=== PATIENT | female | born 1990 | race Caucasian/White ===

== ENCOUNTER → 2017-02-17 | Outpatient (CLI) | payer MEDICAID ==
[~2017-02-17] MED LIST: AMOXICOT500 M1 PO; NITROFURANTOIN100 M4 PO; PRENATAL PLUS1 TA1 PO; TYLENOL ES500 M1 PO
== END ==
LOC: LAB 16:09
DX: Z36 Encounter for antenatal screening of mother (principal)

== ENCOUNTER 2017-03-07 05:06 | Inpatient (IN) | payer MEDICAID ==
[~2017-03-07] VITALS: Ht 160 cm; Wt 88.0 kg
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
--- OUTSIDE RECORDS SUMMARY | 2017-03-07 05:13 | External Medical Summary Rpt ---
Demographics Preferred Language Occitan Marital Status Unknown Pentecostalism Affiliation Unknown Race Unknown Ethnic Group Unknown Author Author MADISYN Address Unknown Phone Immunization Unable to retrieve immunization data due to connection failure with Immunization Registry. Please try again later.
--- OUTSIDE RECORDS SUMMARY | 2017-03-07 05:13 | External Medical Summary Rpt ---
Demographics Preferred Language Khmer Marital Status Unknown Faith Affiliation Unknown Race Unknown Ethnic Group Unknown Author Author MADISYN Address Unknown Phone Immunization Unable to retrieve immunization data due to connection failure with Immunization Registry. Please try again later.
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
--- OUTSIDE RECORDS SUMMARY | 2017-03-07 05:14 | External Medical Summary Rpt ---
Author Author [facility] Taylor, [employer] Organization [employer] Address Unknown Phone Unavailable Results Urinalysis dipstick W Reflex Microscopic panel in Urine Observa Value Referen Units Interpr Notes Date tion ce etation Range Collected by nurse? Y Hold specimen in OE? N Appeara CLEAR CLEAR No No No Mar 02 nce of informa informa informa 2017 Urine tion in tion in tion in 12:30 source source source AM data data data Bacteri 1+ O No No No Mar 02 a informa informa informa 2016 [Presen tion in tion in tion in 12:30 ce] in source source source AM Urine data data data sedimen t by Light microsc opy Bilirub NEGATIV NEG No No No Mar 02 in E informa informa informa 2016 [Presen tion in tion in tion in 12:30 ce] in source source source AM Urine data data data by Test strip Erythro NEGATIV NEG No No No Mar 02 cytes E informa informa informa 2016 [Presen tion in tion in tion in 12:30 ce] in source source source AM Urine data data data Color YELLOW YELLOW No No No Mar 02 of informa informa informa 2017 Urine tion in tion in tion in 12:30 source source source AM data data data Glucose NEG No No No Mar 02 [Mass/vol informati informati informati 2017 ume] in on in on in on in 12:30 AM Urine by source source source Test data data data strip Ketones NEGATIV NEG mg/dL No No Mar 02 E informa informa 2016 [Presen tion in tion in 12:30 ce] in source source AM Urine data data by Automat ed test strip Mucus TRACE NEG No Abnorma No Mar 02 [Presen informa l informa 2017 ce] in tion in tion in 12:30 Urine source source AM sedimen data data t by Light microsc opy Mucus 1+ OCC No No No Mar 02 [Presen informa informa informa 2017 ce] in tion in tion in tion in 12:30 Urine source source source AM sedimen data data data t by Light microsc opy Nitrite NEGATIV NEG No No No Mar 02 E informa informa informa 2016 [Presen tion in tion in tion in 12:30 ce] in source source source AM Urine data data data by Test strip pH of 5.0 - 8.5 No Normal No Mar 02 Urine informati informati 2017 on in on in 12:30 AM source source data data Protein NEG mg/dL No No Mar 02 [Mass/vol informati informati 2017 ume] in on in on in 12:30 AM Urine by source source Automated data data test strip Specific 1.005 - No Normal No Mar 02 gravity 1.030 informati informati 2016 of Urine on in on in 12:30 AM source source data data Epithel OCC 0 - 5 #/hpf No No Mar 02 ial informa informa 2017 cells.s tion in tion in 12:30 quamous source source AM data data [Presen ce] in Urine sedimen t by Microsc opy high power field Urobili 1.0 NEG E.U./dL No No Mar 02 nogen informa informa 2016 [Presen tion in tion in 12:30 ce] in source source AM Urine data data by Test strip Leukocy [3 O wbc/hpf No No Mar 02 ericka wbc/hpf informa informa 2016 [#/volu ; 5 tion in tion in 12:30 me] in wbc/hpf source source AM Urine ] data data Urinalysis dipstick W Reflex Microscopic panel in Urine Observa Value Referen Units Interpr Notes Date tion ce etation Range Collected by nurse? Y Hold specimen in OE? N Appeara CLEAR CLEAR No No No Mar 02 nce of informa informa informa 2017 Urine tion in tion in tion in 12:30 source source source AM data data data Bilirub NEGATIV NEG No No No Mar 02 in E informa informa informa 2016 [Presen tion in tion in tion in 12:30 ce] in source source source AM Urine data data data by Test strip Erythro NEGATIV NEG No No No Mar 02 cytes E informa informa informa 2016 [Presen tion in tion in tion in 12:30 ce] in source source source AM Urine data data data Color YELLOW YELLOW No No No Mar 02 of informa informa informa 2016 Urine tion in tion in tion in 12:30 source source source AM data data data Glucose NEG No No No Mar 02 [Mass/vol informati informati informati 2016 ume] in on in on in on in 12:30 AM Urine by source source source Test data data data strip Ketones NEGATIV NEG mg/dL No No Mar 02 E informa informa 2016 [Presen tion in tion in 12:30 ce] in source source AM Urine data data by Automat ed test strip Mucus TRACE NEG No Abnorma No Mar 02 [Presen informa l informa 2016 ce] in tion in tion in 12:30 Urine source source AM sedimen data data t by Light microsc opy Nitrite NEGATIV NEG No No No Mar 02 E informa informa informa 2016 [Presen tion in tion in tion in 12:30 ce] in source source source AM Urine data data data by Test strip pH of 5.0 - 8.5 No Normal No Mar 02 Urine informati informati 2016 on in on in 12:30 AM source source data data Protein NEG mg/dL No No Mar 02 [Mass/vol informati informati 2016 ume] in on in on in 12:30 AM Urine by source source Automated data data test strip Specific 1.005 - No Normal No Mar 02 gravity 1.030 informati informati 2016 of Urine on in on in 12:30 AM source source data data Urobili 1.0 NEG E.U./dL No No Mar 02 nogen informa informa 2016 [Presen tion in tion in 12:30 ce] in source source AM Urine data data by Test strip Drugs identified in Urine by Screen method Observa Value Referen Units Interpr Notes Date tion ce etation Range Positive urine drug screen samples are stored for 7 days. Contact the Lab if confirmation of positives is needed. Ampheta NEGATIV <1000 ng/mL No No Jan 19 mine E informa informa 2016 [Presen tion in tion in ce] in source source Urine data data by Screen method Barbitura <200 ng/mL No No Jan 19 ericka informati informati 2017 [Mass/vol on in on in ume] in source source Urine by data data Screen method Benzodiaz 200 ng/mL ng/mL No No Jan 15 epines informati informati 2017 [Mass/vol on in on in ume] in source source Serum or data data Plasma by Screen method Cocaine <300 ng/g No No Adrian 15 [Mass/vol informati informati 2017 ume] in on in on in Unspecifi source source ed data data specimen Methadone <300 ng/mL No No Jan 15 informati informati 2017 [Mass/vol on in on in ume] in source source Unspecifi data data ed specimen Opiates <300 ng/mL No No Jan 15 [Mass/vol informati informati 2017 ume] in on in on in Unspecifi source source ed data data specimen Phencycli <25 ng/mL No No Jan 15 dine informati informati 2017 [Mass/vol on in on in ume] in source source Unspecifi data data ed specimen 11-Hydr NEGATIV <50 ng/mL No No Jan 15 oxy E informa informa 2017 delta-9 tion in tion in source source tetrahy data data drocann abinol [Presen ce] in Unspeci fied specime n
[2017-03-07 05:20] VITALS: BP 124/78
--- NOTE | 2017-03-07 06:05 | ACUTE CARE PROGRESS NOTE (QUA) ---
Progress Notes Subjective Date 03/07/17 Time 0603 Note This 26-year-old 4, para 2, AB 1 white female was admitted at 40-6/7 weeks with irregular contractions at 3 cm of dilatation. The presenting vertex is at -1 station. An amniotomy reveals clear fluid, and an internal toco has been placed. She will be augmented with intravenous Pitocin, in anticipation of a vaginal delivery. Assessment/Plan This inpt stay is expected to cross 2 MNs from start of care Yes (OB delivery) at 0604
[2017-03-07 06:32] LABS: HEMOGLOBIN 11.4 g/dL (12.2-16.2); LYMPH # 2.7 K/mm3 (0.7-4.5); LYMPH % 23.9 % (10-50.0)
[2017-03-07 06:49] LABS: ABO BLOOD TYPE O; RH BLOOD TYPE POSITIVE
--- NOTE | 2017-03-07 06:52 | ACUTE CARE PROGRESS NOTE (QUA) ---
Progress Notes Subjective Date 03/07/17 Time 0651 Note Cervix is now 100 percent effaced, 4 cm, with a presenting vertex at -1 station. An internal electrode has been placed. Assessment/Plan This inpt stay is expected to cross 2 MNs from start of care Yes (OB delivery) at 0651
--- NOTE | 2017-03-07 08:43 | ACUTE CARE PROGRESS NOTE (QUA) ---
Progress Notes Subjective Date 03/07/17 Time 0842 Note Epidural is now in situ. Cervix is 4-5 cm, completely effaced, with the presenting vertex at -1 station. Assessment/Plan This inpt stay is expected to cross 2 MNs from start of care Yes (OB delivery) at 0842
[2017-03-07 10:02] LABS: AMPHETAMINES/METAMPHETAMINES NEGATIVE ng/mL (<1000)
[2017-03-07 10:37] LABS: URINE BILIRUBIN - DIPSTICK NEGATIVE (NEG); URINE BLOOD NEGATIVE (NEG)
[2017-03-07 10:51] LABS: URINE SQUAMOUS CELLS OCC #/hpf (0-5)
--- NOTE | 2017-03-07 12:53 | ACUTE CARE PROGRESS NOTE (QUA) ---
Progress Notes Subjective Date 03/07/17 Time 1252 Note Cervix now 6 cm, completely effaced, -1 station. Doing well. Assessment/Plan This inpt stay is expected to cross 2 MNs from start of care Yes (OB delivery) at 1254
--- NOTE | 2017-03-07 15:30 | Delivery Note ---
Delivery note Delivery date: 03/07/17 Delivery time: 1438 Anesthesia: Epidural Was labor medically induced? Yes Method for inducing labor: Oxytocin Gestational age in weeks: 40 weeks Days: 6 days Delivery prior to 39 weeks? No Sex: female score at one minute: 8 at 5 minutes: 9 Type of suction: bulb AF: Clear LAC or MLE: LAC (first-degree perineal) Delivery procedure: Normal Delivery Delivery of placenta: spontaneous Clinical note This 26-year-old 4, now para 3, AB 0 white female was admitted at 40-6/7 weeks with irregular contractions. She was augmented with intravenous Pitocin, and labored under labor epidural, which worked well. She was steadily to completion at 1420 and delivered spontaneously, without an episiotomy, at 1438. The baby was an 8/9, 7 lbs. 9 oz., 20 inch female , born at 1438. The baby's naso-and oropharynx were bulb suctioned, and the baby cried spontaneously on the perineum, as was delivered. Cord was clamped and cut, 3 vessels were noted to be within the cord, and cord blood was obtained. The cord pH is pending. The baby was handed into the arms of the attending RN, was signed Apgars of 8 at 1 minute and 9 at 5 minutes to this 7 lbs. 9 oz., 20 inch female infant, born at 1438. The baby was recovered in excellent condition. The placenta delivered spontaneously, intact. The uterus was inspected and was felt to be clean, and was involuting well, with IV Pitocin running. There was a first -degree perineal laceration, which was closed with a running unlocked suture of 2-0 Vicryl. The rectovaginal septum was intact at the close of the procedure. Sponge and needle counts correct. The estimated blood loss was 350 mL. The patient tolerated the procedure well, and was recovered in excellent condition. Her blood type is O positive. Her rubella titer is immune. She plans to bottlefeed. at 1530
[2017-03-07 21:00] VITALS: BP 110/68
[2017-03-08 06:32] LABS: HEMOGLOBIN 10.1 g/dL (12.2-16.2)
--- NOTE | 2017-03-08 07:47 | ACUTE CARE PROGRESS NOTE (QUA) ---
Progress Notes Subjective Date 03/08/17 Time 0746 Note This is day number 1. The patient is afebrile. Vital signs stable. Lochia normal. Uterine fundus involuting well. Perineum healing well. Hemoglobin 10.1 g, but clinically stable. The patient has decided against a tubal ligation at this time. rn social services will be visiting the patient today. Assessment/Plan This inpt stay is expected to cross 2 MNs from start of care Yes (OB delivery) at 0746
--- NOTE | 2017-03-08 07:47 | ACUTE CARE PROGRESS NOTE (QUA) ---
Progress Notes Subjective Date 03/08/17 Time 0746 Note This is day number 1. The patient is afebrile. Vital signs stable. Lochia normal. Uterine fundus involuting well. Perineum healing well. Hemoglobin 10.1 g, but clinically stable. The patient has decided against a tubal ligation at this time. building services coordinator will be visiting the patient today. Assessment/Plan This inpt stay is expected to cross 2 MNs from start of care Yes (OB delivery) at 0746
[2017-03-08 07:55] VITALS: BP 114/66
[2017-03-08 20:07] VITALS: BP 128/77
--- NOTE | 2017-03-09 06:07 | ACUTE CARE PROGRESS NOTE (QUA) ---
Progress Notes Subjective Date 03/09/17 Time 0606 Note This is day number 2. The patient is afebrile. Vital signs stable. Perineum healing well. Lochia normal. Uterine fundus involuting well. supervisor ship maintenance services will be visiting today. The patient will be discharged today. Her hemoglobin is 10.1 g. Assessment/Plan This inpt stay is expected to cross 2 MNs from start of care Yes (OB delivery) at 0607
--- NOTE | 2017-03-09 06:07 | ACUTE CARE PROGRESS NOTE (QUA) ---
Progress Notes Subjective Date 03/09/17 Time 0606 Note This is day number 2. The patient is afebrile. Vital signs stable. Perineum healing well. Lochia normal. Uterine fundus involuting well. business services intern will be visiting today. The patient will be discharged today. Her hemoglobin is 10.1 g. Assessment/Plan This inpt stay is expected to cross 2 MNs from start of care Yes (OB delivery) at 0607
--- NOTE | 2017-03-09 06:12 | DISCHARGE SUMMARY STANDARD ---
Discharge Summary Date of admission: 03/07/17 Date of discharge: 03/09/17 Patient condition: Stable Discharge diagnosis (es): 1. Term intrauterine , delivered. 2. Anemia. Hospital course: This 26-year-old 4, now para 3, AB 1 white female was admitted at 40-6/7 weeks with irregular contractions at 3 cm of dilatation. She was augmented with intravenous Pitocin, and labored under labor epidural, which worked well. She went steadily to completion and delivered spontaneously, without an episiotomy, at 1438 on 03/07/17. The baby was an 8/9, 7 lbs. 9 oz., 20 inch female infant, who is bottlefeeding and has done well. There was a first-degree perineal laceration, which was closed with 2-0 Vicryl in the usual fashion. the patient has done well. She is eating and ambulating, and has had a bowel movement. Her uterine fundus has involuted well. Her perineum is healing well. Her lochia is normal. Because of extraneous issues, social work coordinator is involved and will be visiting the patient again today prior to discharge. She is discharged home on the second day on iron and vitamins (her hemoglobin is 10.1 g, but she is clinically stable), and on Tylenol and Motrin, as needed for pain. She is a smoker but refuses smoking cessation patches. She is given appropriate instructions as to diet, exercise, and perineal care, and she is to return the office in 3 weeks for follow-up. She had initially planned a tubal ligation, but has now opted for reversible contraception, which will be discussed in the office. Her blood type is O positive. Her rubella titer is immune. at 0612
[2017-03-09 08:22] VITALS: BP 127/59
== END 2017-03-09 09:13 | disposition home or self-care (01) | DRG 775 ==
LOC: OB 05:06
PROVIDERS: Obstetrics & Gynecology
PROC: 10E0XZZ Delivery of Products of Conception, External Approach (ICD-10-PCS; principal; 2017-03-07)
DX: O70.0 First degree perineal laceration during delivery (principal); Z37.0 Single live birth; Z3A.40 40 weeks gestation of pregnancy
CPT/HCPCS: C1758